=== PATIENT | male | born 1930 | race American Indian/Alaskan Native ===

== ENCOUNTER 2018-06-16 06:58 | Day surgery (SDC) | payer MEDICARE ==
[2018-06-16 07:20] VITALS: BMI 25.0
[2018-06-16 07:56] LABS: BASO # 0.1 K/uL (0.0-0.2); EOS # 0.3 K/uL (0.0-0.7); EOS % 5.3 % (0.0-4.0); HEMOGLOBIN 11.3 g/dL (12.0-18.0); LYMPH # 1.6 K/uL (1.0-4.3); LYMPH % 34.2 % (20.0-40.0); MEAN CELL VOLUME 92.7 fL (80.0-94.0); MEAN CORPUSCULAR HEMOGLOBIN 32.1 pg (27.0-31.0); MEAN CORPUSCULAR HGB CONC 34.6 g/dL (33.0-37.0); MEAN PLATELET VOLUME 7.5 fL (7.2-11.7); MONO # 0.5 K/uL (0.0-0.8); MONO % 10.4 % (0.0-10.0); NEUT # 2.4 K/uL (1.8-7.0); NEUT % 49.1 % (50.0-75.0); NRBC % 0.1 % (0.0-2.0); RBC 3.53 Mil/uL (4.40-5.90); WHITE BLOOD COUNT 4.8 K/uL (4.8-10.8)
[2018-06-16 08:08] LABS: INR 1.1; PROTHROMBIN TIME 11.7 SECONDS (9.7-12.2)
[2018-06-16 08:09] LABS: BLOOD UREA NITROGEN 21 mg/dL (9-20); CALCIUM 8.8 mg/dl (8.6-10.4); GFR NON-AFRICAN AMERICAN > 60
[2018-06-16] MEDS ORDERED: Iohexol 350mg/ml 100 ML ONE (08:42)
[2018-06-16] MEDS ORDERED: Midazolam 2 MG/2 ML VIAL ONE (09:05)
[2018-06-16] MEDS ORDERED: Sodium Chloride 0.9% 500 ML IV SCH (10:00)
[2018-06-18 12:24] VITALS: RESP 15; O2SAT 100
--- NOTE | 2018-06-22 13:05 | CARDCATH ---
PROCEDURE DATE: 06/16/2018 PROCEDURES: 1. Left heart catheterization. 2. Coronary angiogram. CLINICAL INDICATIONS: 1. Chest pain. 2. Abnormal stress test. 3. Atrial fibrillation. PERFORMING PHYSICIAN: Avi Silver MD. DESCRIPTION OF PROCEDURE: After informed consent, the patient was prepped and draped in the usual sterile fashion. A 2% lidocaine was given in the right groin for local anesthesia. Using micropuncture technique, a #6 Polish sheath was introduced into right common femoral artery. A JR4 6-Polish diagnostic catheter inserted into the left ventricle. Contrast injected and left ventricular angiogram was done. LVEDP is measured. Then, the catheters were pulled back across the aortic valve. Gradient across the aortic valve was measured. Then, the same catheter engaged into the right coronary artery. Contrast injected and the right coronary angiogram was done. Then, the catheter exchanged into 6-Polish JL3 diagnostic catheter. Catheter engaged into the left main coronary artery. Contrast injected and left coronary angiogram was done. The patient tolerated the procedure well. Postprocedure, the sheath was pulled manually with excellent hemostasis. FINDINGS: 1. Left main coronary artery is patent. 2. LAD and diagonal branches are patent. 3. Left circumflex and obtuse marginal branches are patent. 4. Right coronary artery is nondominant and patent. The patient has a left dominant system. 5. LV ejection fraction approximately 60%. No wall motion abnormalities noted. EDP is 18. No gradient across the aortic valve. IMPRESSION: 1. Normal coronaries. 2. Normal left ventricular systolic function. Recommend medical management. Avi Silver MD
== END 2018-06-16 13:45 | disposition home or self-care (01) ==
LOC: C.CATHLAB 06:58
PROVIDERS: ATTEND Internal Medicine Cardiovascular Disease
DX: R94.39 Abnormal result of other cardiovascular function study (principal); I48.91 Unspecified atrial fibrillation; I10 Essential (primary) hypertension
CPT/HCPCS: 36415; 80048; 85025; 85610; 85730; 93458; 94770; 99152; 99153; C1760; C1766; C1769; C1887; C1893; J1644; J2250; J3010; J7040; Q9967

== ENCOUNTER 2018-10-24 13:13 | Inpatient (IN) | payer MEDICARE ==
[2018-10-24 13:13] VITALS: BMI 25.0
[2018-10-24 14:45] LABS: BASO # 0.1 K/uL (0.0-0.2); EOS # 0.2 K/uL (0.0-0.7); EOS % 3.9 % (0.0-4.0); HEMOGLOBIN 11.2 g/dL (12.0-18.0); LYMPH # 1.5 K/uL (1.0-4.3); LYMPH % 30.8 % (20.0-40.0); MEAN CELL VOLUME 92.6 fL (80.0-94.0); MEAN CORPUSCULAR HEMOGLOBIN 31.7 pg (27.0-31.0); MEAN CORPUSCULAR HGB CONC 34.2 g/dL (33.0-37.0); MEAN PLATELET VOLUME 7.8 fL (7.2-11.7); MONO # 0.6 K/uL (0.0-0.8); MONO % 12.3 % (0.0-10.0); NEUT # 2.5 K/uL (1.8-7.0); NRBC % 0.1 % (0.0-2.0); RBC 3.54 Mil/uL (4.40-5.90); RED CELL DISTRIBUTION WIDTH 13.5 % (11.5-14.5); WHITE BLOOD COUNT 4.8 K/uL (4.8-10.8)
--- NOTE | 2018-10-24 14:57 | C.PDOC ---
History Of Present Illness 88 year old male with PMHx of glaucoma on beta delroy eye drops presents to the ED sent by his hardware designer Dr. Silver. Patient was at Dr. Silver's office this morning where he was noted to be bradycardic but asymptomatic. Patient was r eferred to the ED for further evaluation and the possibility of an urgent pacemaker placement because patient's pulse is persistently in the 30-40s. Patient denies any physical complaints. Time Seen by Provider: 10/24/18 14:19 Chief Complaint (Nursing): Medical Clearance History Per: Patient History/Exam Limitations: no limitations Onset/Duration Of Symptoms: Hrs Current Symptoms Are (Timing): Still Present Reports Recently: Treated By A Physician Past Medical History Reviewed: Historical Data, Nursing Documentation, Vital Signs Vital Signs: Last Vital Signs Temp 98 F 10/24/18 13:17 Pulse 63 10/24/18 13:17 Resp 18 10/24/18 13:17 BP 196/80 H 10/24/18 13:17 Pulse Ox 97 10/24/18 13:17 - Medical History PMH: HTN Other PMH: Glaucoma Surgical History: Denies: Pacemaker - [facility] ENDOSC POLYPECTOMY OF LG INTEST (06/27/12) Family History: States: No Known Family Hx - Social History Hx Alcohol Use: No (social) Hx Substance Use: No - Immunization History Hx Tetanus Toxoid Vaccination: No Hx Influenza Vaccination: No Hx Pneumococcal Vaccination: No Review Of Systems Except As Marked, All Systems Reviewed And Found Negative. Constitutional: Negative for: Fever, Chills Cardiovascular: Positive for: Other (Bradycardia ). Negative for: Chest Pain Respiratory: Negative for: Shortness of Breath Gastrointestinal: Negative for: Nausea, Vomiting, Abdominal Pain, Diarrhea Physical Exam - Physical Exam Appears: Non-toxic, No Acute Distress Skin: Warm, Dry, No Rash Head: Normacephalic Eye(s): bilateral: Normal Inspection Oral Mucosa: Moist Neck: Supple Chest: Symmetrical Cardiovascular: Rhythm Regular Respiratory: Normal Breath Sounds, No Rales, No Rhonchi, No Wheezing Gastrointestinal/Abdominal: Soft, No Tenderness Extremity: No Pedal Edema Neurological/Psych: Oriented x3, Normal Speech Gait: Steady ED Course And Treatment - Laboratory Results Result Diagrams: 10/24/18 14:40 10/24/18 14:40 O2 Sat by Pulse Oximetry: 97 (RA) Pulse Ox Interpretation: Normal Medical Decision Making Medical Decision Making: Plan - Labs - EKG - CXR Disposition Discussed With Dr.: Avi Silver - Disposition Disposition: HOSPITALIZED Disposition Time: 15:12 Condition: GUARDED Forms: [facility] (Norwegian) - Clinical Impression Clinical Impression: Bradycardia - Scribe Statement The provider has reviewed the documentation as recorded by the Scribe Tiara Weaver All medical record entries made by the Scribe were at my direction and personally dictated by me. I have reviewed the chart and agree that the record accurately reflects my personal performance of the history, physical exam, medical decision making, and the department course for this patient. I have also personally directed, reviewed, and agree with the discharge instructions and disposition. Decision To Admit - Pt Status Changed To: Hospital Disposition Of: Observation - . Bed Request Type: Telemetry Admitting Physician: Eric Bella Patient Diagnosis: Bradycardia
[2018-10-24 15:03] LABS: ALB/GLOB RATIO 1.9 (1.0-2.1); ALBUMIN 4.5 g/dL (3.5-5.0); ALT/SGPT 32 U/L (21-72); AST/SGOT 35 U/L (17-59); BLOOD UREA NITROGEN 19 mg/dL (9-20); CALCIUM 9.4 mg/dl (8.6-10.4); GFR NON-AFRICAN AMERICAN > 60
[2018-10-24 15:17] LABS: B-TYPE NATRIURETIC PEPTIDE 1550 pg/mL (0-900)
--- NOTE | 2018-10-24 16:11 | CP.PCM.HP ---
<Rhonda Hernandez P - Last Filed: 10/24/18 19:18> History of Present Illness - History of Present Illness History of Present Illness: H&P for Dr. Azucena Bella. 88 year old male with PMHx of Atrial fibrillation, glaucoma, BPH, chronic leg swelling, and chronic leg pain was sent to the ED by his microfilm machine operator, Dr. Silver when he was found to be bradycardic in the 30's at a routine office visit. Patient has no complaints at this time. Denies chest pain, shortness of breath, lethargy, syncope, near syncope, lightheadedness, dizziness, palpitations, change in vision, abdominal pain, diarrhea, constipation, melena, dysuria, frequency. Patient notes that he was previously on Eliquis for Afib (06/2018), however was taken off of it a few weeks later after experiencing bloody diarrhea. 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 PMD: May Cardio: Dr. Silver Proxy: Daughter: Sintia Calderon, Patient has a living will in progress. 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 Review of Systems: -Gen: No fever, No chills, No headache, No lethargy, No weakness. -HEENT: No dizziness, No change in vision, No change in hearing, No sore throat, No dysphagia, No nasal congestion, No mucous. -Cardio: No chest pain, No palpitations, +chronic lower extremity edema, No orthopnea. -Resp: No cough, No dyspnea, No hemoptysis, No wheezing, No pain on inspira tion. -GI: No abdominal pain, No nausea/vomiting, No diarrhea/constipation, No hematochezia, No hematemesis. -: No dysuria, No urinary freq, No incontinence, No hematuria, No change in urinary stream. -MSK: No back pain, No muscle weakness, No radiating pain. +leg pain -Skin: No itching, No rash, No lesions. -Neuro: No confusion, No numbness, No tingling, No focal weakness, No radicular pain, No syncope. -Psych: No anxiety, No depression, No H/I, No S/I, No hallucinations. Present on Admission - Present on Admission Any Indicators Present on Admission: No Past Patient History - Past Social History Smoking Status: Never Smoked - CARDIAC Hx Hypertension: Yes Hx Pacemaker: No - HEENT Other/Comment: eye problem - HEMATOLOGICAL/ONCOLOGICAL Hx Blood Transfusions: No Hx Blood Transfusion Reaction: No - MUSCULOSKELETAL/RHEUMATOLOGICAL Hx Musculoskeletal Disorders: No - PSYCHIATRIC Hx Substance Use: No - SURGICAL HISTORY Hx Surgeries: No - ANESTHESIA Hx Anesthesia Reactions: No Hx Malignant Hyperthermia: No Meds Allergies/Adverse Reactions: Allergies Allergy/AdvReac Type Severity Reaction Status Date / Time No Known Allergies Allergy Verified 10/24/18 13:18 Physical Exam - Constitutional Appears: Non-toxic, No Acute Distress - Head Exam Head Exam: ATRAUMATIC, NORMOCEPHALIC - Eye Exam Eye Exam: EOMI, PERRL Additional comments: arcus senilis - ENT Exam ENT Exam: Mucous Membranes Moist - Neck Exam Neck exam: Positive for: Full Rom, Normal Inspection. Negative for: Lymphadenopathy - Respiratory Exam Respiratory Exam: Clear to Auscultation Bilateral, NORMAL BREATHING PATTERN. absent: Accessory Muscle Use, Rales, Rhonchi, Wheezes, Respiratory Distress - Cardiovascular Exam Cardiovascular Exam: Bradycardia, +S1, +S2 - GI/Abdominal Exam GI & Abdominal Exam: Normal Bowel Sounds, Soft. absent: Distended, Firm, Guarding, Rigid, Tenderness - Extremities Exam Extremities exam: Positive for: full ROM, normal capillary refill, pedal pulses present. Negative for: calf tenderness, joint swelling, tenderness Additional comments: chronic venous stasis changes bilaterally, trace pitting edema to RLE. - Neurological Exam Neurological exam: Alert, CN II-XII Intact, Oriented x3 - Psychiatric Exam Psychiatric exam: Normal Affect, Normal Mood - Skin Skin Exam: Dry, Intact, Warm Additional comments: lentigo senilis to back Results - Vital Signs Recent Vital Signs: Last Vital Signs Temp 98.0 F 10/24/18 15:52 Pulse 51 L 10/24/18 15:52 Resp 20 10/24/18 15:52 BP 178/61 H 10/24/18 15:52 Pulse Ox 98 10/24/18 15:52 - Labs Result Diagrams: 10/24/18 14:40 10/24/18 14:40 Labs: Laboratory Results - last 24 hr 10/24/18 10/24/18 10/24/18 14:40 14:40 14:40 WBC 4.8 RBC 3.54 L Hgb 11.2 L Hct 32.8 L MCV 92.6 MCH 31.7 H MCHC 34.2 RDW 13.5 Plt Count 164 MPV 7.8 Neut % (Auto) 52.0 Lymph % (Auto) 30.8 [place] % (Auto) 12.3 H Eos % (Auto) 3.9 Baso % (Auto) 1.0 Neut # (Auto) 2.5 Lymph # (Auto) 1.5 [place] # (Auto) 0.6 Eos # (Auto) 0.2 Baso # (Auto) 0.1 Sodium 135 Potassium 3.9 Chloride 106 Carbon Dioxide 27 Anion Gap 6 L BUN 19 Creatinine 1.0 Est GFR ( Amer) > 60 Est GFR (Non-Af Amer) > 60 Random Glucose 98 Calcium 9.4 Total Bilirubin 1.3 AST 35 ALT 32 Alkaline Phosphatase 87 Troponin I < 0.0120 NT-Pro-B Natriuret Pep 1550 H Total Protein 6.9 Albumin 4.5 Globulin 2.4 Albumin/Globulin Ratio 1.9 Blood Type A POSITIVE Antibody Screen Negative Assessment & Plan - Assessment and Plan (Free Text) Plan: 88 year old male with PMHx of Atrial fibrillation, glaucoma, BPH, chronic leg swelling, and chronic leg pain was sent to the ED by his microfilm machine operator, Dr. Silver when he was found to be bradycardic in the 30's at a routine office visit. Asymptomatic Bradycardia status, acute Consult cardiology, Dr. Silver Consult EP, Dr. Byrd EKG: afib with slow ventricular response 42bpm Elevated Blood Pressure Status, acute SBP on admission 170s Hydralazine 10mg PO Q6H PRN SBP>160 Elevated ProBNP status, acute Pro BNP on admission 1550 Patient has no chest pain, cough, shortness of breath, or wheezing No evidence of congestion on respiratory exam f/u CXR Chronic anemia status chronic Hgb A1c on admission 11.2 Likely secondary to chronic disease Monitor Continue ferrous sulfate 325mg PO daily Atrial fibrillation Status chronic Place on Telemetry Lovenox 70mg SC Q12H Previous trial of Eliquis resulted in bloody diarrhea BPH Status, chronic Flomax 0.4mg SC daily Finesteride 5mg PO daily Bilateral glaucoma Status, chronic Home med Combigan non formulary-> Brimonidine 0.2% OU daily Lumigan 0.01% OU daily Bilateral lower extremity edema Status, chronic HCTZ 12.5mg PO daily PPx Therapeutic lovenox GI not indicated HHD/Low carb Case discussed with Dr. Azucena Hernandez, PGY1 <Eric Bella - Last Filed: 10/25/18 17:08> Results - Vital Signs Recent Vital Signs: Last Vital Signs Temp 98.5 F 10/25/18 08:20 Pulse 48 L 10/25/18 11:32 Resp 20 10/25/18 08:20 BP 123/72 10/25/18 11:32 Pulse Ox 97 10/25/18 12:00 - Labs Result Diagrams: 10/25/18 07:02 10/25/18 07:02 Labs: Laboratory Results - last 24 hr 10/25/18 10/25/18 10/25/18 07:02 07:02 07:02 WBC 3.6 L RBC 3.91 L Hgb 12.6 Hct 36.3 MCV 93.0 MCH 32.1 H MCHC 34.5 RDW 14.0 Plt Count 179 MPV 8.2 Neut % (Auto) 49.5 L Lymph % (Auto) 36.8 [place] % (Auto) 8.9 Eos % (Auto) 3.5 Baso % (Auto) 1.3 Neut # (Auto) 1.8 Lymph # (Auto) 1.3 [place] # (Auto) 0.3 Eos # (Auto) 0.1 Baso # (Auto) 0.0 PT 12.4 H INR 1.1 APTT 40 H Sodium 136 Potassium 4.0 Chloride 102 Carbon Dioxide 27 Anion Gap 11 BUN 18 Creatinine 1.0 Est GFR ( Amer) > 60 Est GFR (Non-Af Amer) > 60 Random Glucose 107 Calcium 9.6 Total Bilirubin 1.5 H AST 32 ALT 31 Alkaline Phosphatase 93 Total Protein 7.2 Albumin 4.1 Globulin 3.1 Albumin/Globulin Ratio 1.3 Thyroxine (T4) 7.61 TSH 3rd Generation 2.50 Attending/Attestation - Attestation I have personally seen and examined this patient.: Yes I have fully participated in the care of the patient.: Yes I have reviewed all pertinent clinical information: Yes Notes (Text): 10/25/18 17:07 This is a late entry. History, Physical, Assessment and Plan, and all Orders were thoroughly gone over with resident Dr. Hernandez at the time of admission. Spoke with Dr. Silver on 10/24/18 and plan is for Pacemaker. Eric Bella D.O.
--- NOTE | 2018-10-24 17:15 | RAD ---
HISTORY: chest pain COMPARISON: None available TECHNIQUE: Chest, one view. FINDINGS: Examination limited by habitus. LUNGS: No focal consolidation. Please note that chest x-ray has limited sensitivity for the detection of pulmonary masses. PLEURA: No significant pleural effusion identified. No definite pneumothorax . CARDIOVASCULAR: Cardiomegaly. Atherosclerotic calcifications of the aortic knob. OSSEOUS STRUCTURES: Osseous demineralization. Degenerative changes. VISUALIZED UPPER ABDOMEN: Unremarkable. OTHER FINDINGS: None. IMPRESSION: Cardiomegaly. No focal consolidation.
[2018-10-24] MEDS: Enoxaparin 80 mg Syringe SC SCH (18:00)
[2018-10-24] MEDS ORDERED: Latanoprost 2.5 ml Opht Soln OU SCH (22:00)
[2018-10-24] MEDS ORDERED: BIMATOPROST OU SCH (22:00)
[2018-10-25] MEDS: Enoxaparin 80 mg Syringe SC SCH ×2 (05:47→17:17)
[2018-10-25 07:17] LABS: BASO % 1.3 % (0.0-2.0); EOS # 0.1 K/uL (0.0-0.7); EOS % 3.5 % (0.0-4.0); HEMOGLOBIN 12.6 g/dL (12.0-18.0); LYMPH # 1.3 K/uL (1.0-4.3); LYMPH % 36.8 % (20.0-40.0); MEAN CORPUSCULAR HEMOGLOBIN 32.1 pg (27.0-31.0); MEAN CORPUSCULAR HGB CONC 34.5 g/dL (33.0-37.0); MEAN PLATELET VOLUME 8.2 fL (7.2-11.7); MONO # 0.3 K/uL (0.0-0.8); MONO % 8.9 % (0.0-10.0); NEUT # 1.8 K/uL (1.8-7.0); NEUT % 49.5 % (50.0-75.0); RBC 3.91 Mil/uL (4.40-5.90); WHITE BLOOD COUNT 3.6 K/uL (4.8-10.8)
[2018-10-25 07:25] LABS: ALB/GLOB RATIO 1.3 (1.0-2.1); ALBUMIN 4.1 g/dL (3.5-5.0); ALT/SGPT 31 U/L (21-72); AST/SGOT 32 U/L (17-59); BLOOD UREA NITROGEN 18 mg/dL (9-20); CALCIUM 9.6 mg/dl (8.6-10.4); GFR NON-AFRICAN AMERICAN > 60
[2018-10-25 07:37] LABS: INR 1.1; PROTHROMBIN TIME 12.4 SECONDS (9.7-12.2)
[2018-10-25] MEDS ORDERED: Brimonidine 0.2% Opth Sol (5ml) OU SCH (10:00)
--- NOTE | 2018-10-25 16:50 | CP.PCM.PN ---
Subjective - Date & Time of Evaluation Date of Evaluation: 10/25/18 Time of Evaluation: 12:00 - Subjective Subjective: Hospitalist Progress Note Patient was seen and examined at 12:00 PM 10/25/18 Bed 662B 88 year Male (PMHx: Atrial fibrillation, Glaucoma, BPH, Chronic Leg Swelling/Chronic Leg Pain) was sent to the ED by his bag bleacher, Dr. Silver when he was found to be bradycardic in the 30's at a routine office visit on 10/24/18. 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 Asymptomatic Bradycardia Status: Acute Consult cardiology, Dr. Silver Consult EP, Dr. Garcia and we are awaiting his evaluation for placement of Pacemaker EKG: Atrial Fibrillation with slow ventricular response 2). Elevated Blood Pressure Status: Acute SBP on admission 170s Hydralazine 10mg PO Q6H PRN SBP>160 Patient is on HCTZ at home but this is for his Chronic LE Edema. HCTZ 12.5 mg PO 1x/day has been continued Enalapril 10 mg PO 1x/day has been added NO beta delroy and NO CCB due to the bradycardia 3). Elevated ProBNP Status: Acute Pro BNP on admission 1550 Patient has no chest pain, cough, shortness of breath, or wheezing No evidence of congestion on respiratory exam Chest X Ray 10/24/18 does not indicate any congestion and no consolidation but does show enlarged heart 4). Chronic anemia Status: Chronic Hgb on admission 11.2 Likely secondary to chronic disease Monitor HgB/Hct 5). Hx Atrial fibrillation Status: Chronic Place on Telemetry Lovenox 70mg SC Q12H Previous trial of Eliquis resulted in bloody diarrhea Medicine Team will follow up with Cardiology Dr. Silver for best course of action for anticoagulation after placement of Pacemaker 6). Hx BPH Status: Chronic Flomax 0.4mg SC daily Finesteride 5mg PO daily 7). Hx Bilateral glaucoma Status: Chronic Home med Combigan non formulary-> Brimonidine 0.2% OU daily Lumigan 0.01% OU daily Daughter Eron to bring in home glaucoma medications on 10/25/18 8). Hx Bilateral Lower Extremity Edema/Pain Status: Chronic HCTZ 12.5mg PO 1x/day Gabapentin 300 mg PO 1x/day 9). Prophylaxis Status: Acute Therapeutic lovenox GI not indicated HHD/Low carb diet Disposition: Dr. Silver to coordinate with Director Of Teacher Education Dr. Garcia for Pacemaker. Spoke with Daughter Eron via phone as per patient request: explained plan. Daughter Eron to bring in patient's home Glaucoma medications on and she understands to give them to the nursing station so that they can be properly logged and administered. Objective - Vital Signs/Intake and Output Vital Signs (last 24 hours): Temp Pulse Resp BP Pulse Ox 98.5 F 48 L 20 123/72 97 10/25/18 08:20 10/25/18 11:32 10/25/18 08:20 10/25/18 11:32 10/25/18 12:00 - Medications Medications: Current Medications Aspirin (Aspirin Chewable) 81 mg PO DAILY [facility] Last Admin: 10/25/18 09:15 Dose: 81 mg Brimonidine Tartrate (Alphagan 0.2% Opht) 0.05 ml OU DAILY [facility] Last Admin: 10/25/18 09:15 Dose: 1 drop Enoxaparin Sodium (Lovenox) 70 mg SC Q12H [facility] Last Admin: 10/25/18 05:47 Dose: 70 mg Ferrous Sulfate (Feosol) 325 mg PO DAILY [facility] Last Admin: 10/25/18 09:15 Dose: 325 mg Gabapentin (Neurontin) 300 mg PO DAILY [facility] Last Admin: 10/25/18 09:15 Dose: 300 mg Hydralazine HCl (Apresoline) 10 mg PO Q6H PRN PRN Reason: Systolic Blood Pressure Hydrochlorothiazide (Microzide) 12.5 mg PO DAILY [facility] Last Admin: 10/25/18 09:15 Dose: 12.5 mg Latanoprost (Xalatan Opht) 1 ml OU HS [facility] Last Admin: 10/24/18 21:23 Dose: 1 ml Lisinopril (Zestril) 10 mg PO DAILY [facility] Last Admin: 10/25/18 11:17 Dose: Not Given Tamsulosin HCl (Flomax) 0.4 mg PO DAILY [facility] Last Admin: 10/25/18 09:15 Dose: 0.4 mg Timolol Maleate (Timoptic 0.5% Oph Soln) 0 drop OU DAILY [facility] Last Admin: 10/25/18 11:22 Dose: 1 drop - Labs Labs: 10/25/18 07:02 10/25/18 07:02 PT 12.4 SECONDS (9.7-12.2) H 10/25/18 07:02 INR 1.1 10/25/18 07:02 APTT 40 SECONDS (21-34) H 10/25/18 07:02
--- NOTE | 2018-10-25 18:59 | CP.PCM.CON ---
History of Present Illness - History of Present Illness History of Present Illness: CC; Bradycardia and Heart Blcok 88 year old male with PMHx of Atrial fibrillation, glaucoma, BPH, chronic leg swelling, and chronic leg pain was sent to the ED by me when he was found to be bradycardic in the 30's at a routine office visit. Patient has no complaints at this time. Denies chest pain, shortness of breath, lethargy, syncope, near syncope, lightheadedness, dizziness, palpitations, change in vision, abdominal pain, diarrhea, constipation, melena, dysuria, frequency. Patient notes that he was previously on Eliquis for Afib (06/2018), however was taken off of it a few weeks later after experiencing bloody diarrhea. 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 Proxy: Daughter: Sintia Calderon, Patient has a living will in progress. He states his airport driver has not finalized it yet. Review of Systems: -Gen: No fever, No chills, No headache, No lethargy, No weakness. -HEENT: No dizziness, No change in vision, No change in hearing, No sore throat, No dysphagia, No nasal congestion, No mucous. -Cardio: No chest pain, No palpitations, +chronic lower extremity edema, No orthopnea. -Resp: No cough, No dyspnea, No hemoptysis, No wheezing, No pain on inspiration. -GI: No abdominal pain, No nausea/vomiting, No diarrhea/constipation, No hematochezia, No hematemesis. -: No dysuria, No urinary freq, No incontinence, No hematuria, No change in urinary stream. -MSK: No back pain, No muscle weakness, No radiating pain. +leg pain -Skin: No itching, No rash, No lesions. -Neuro: No confusion, No numbness, No tingling, No focal weakness, No radicular pain, No syncope. -Psych: No anxiety, No depression, No H/I, No S/I, No hallucinations. Present on Admission - Present on Admission Any Indicators Present on Admission: No Meds Allergies/Adverse Reactions: Allergies Allergy/AdvReac Type Severity Reaction Status Date / Time No Known Allergies Allergy Verified 10/24/18 13:18 Physical Exam - Constitutional Appears: Non-toxic, No Acute Distress - Head Exam Head Exam: ATRAUMATIC, NORMOCEPHALIC - Eye Exam Eye Exam: EOMI, PERRL Additional comments: arcus senilis - ENT Exam ENT Exam: Mucous Membranes Moist - Neck Exam Neck exam: Positive for: Full Rom, Normal Inspection. Negative for: Lymphadenopathy - Respiratory Exam Respiratory Exam: Clear to Auscultation Bilateral, NORMAL BREATHING PATTERN. absent: Accessory Muscle Use, Rales, Rhonchi, Wheezes, Respiratory Distress - Cardiovascular Exam Cardiovascular Exam: Bradycardia, +S1, +S2 - GI/Abdominal Exam GI & Abdominal Exam: Normal Bowel Sounds, Soft. absent: Distended, Firm, Guarding, Rigid, Tenderness - Extremities Exam Extremities exam: Positive for: full ROM, normal capillary refill, pedal pulses present. Negative for: calf tenderness, joint swelling, tenderness Additional comments: chronic venous stasis changes bilaterally, trace pitting edema to RLE. - Neurological Exam Neurological exam: Alert, CN II-XII Intact, Oriented x3 - Psychiatric Exam Psychiatric exam: Normal Affect, Normal Mood - Skin Skin Exam: Dry, Intact, Warm Additional comments: lentigo senilis to back Results - Vital Signs Recent Vital Signs: Last Vital Signs Temp 98.0 F 10/24/18 15:52 Pulse 51 L 10/24/18 15:52 Resp 20 10/24/18 15:52 BP 178/61 H 10/24/18 15:52 Pulse Ox 98 10/24/18 15:52 - Labs Result Diagrams: 10/24/18 14:40 10/24/18 14:40 Labs: Laboratory Results - last 24 hr 10/24/18 10/24/18 10/24/18 14:40 14:40 14:40 WBC 4.8 RBC 3.54 L Hgb 11.2 L Hct 32.8 L MCV 92.6 MCH 31.7 H MCHC 34.2 RDW 13.5 Plt Count 164 MPV 7.8 Neut % (Auto) 52.0 Lymph % (Auto) 30.8 Kidder % (Auto) 12.3 H Eos % (Auto) 3.9 Baso % (Auto) 1.0 Neut # (Auto) 2.5 Lymph # (Auto) 1.5 Kidder # (Auto) 0.6 Eos # (Auto) 0.2 Baso # (Auto) 0.1 Sodium 135 Potassium 3.9 Chloride 106 Carbon Dioxide 27 Anion Gap 6 L BUN 19 Creatinine 1.0 Est GFR ( Amer) > 60 Est GFR (Non-Af Amer) > 60 Random Glucose 98 Calcium 9.4 Total Bilirubin 1.3 AST 35 ALT 32 Alkaline Phosphatase 87 Troponin I < 0.0120 NT-Pro-B Natriuret Pep 1550 H Total Protein 6.9 Albumin 4.5 Globulin 2.4 Albumin/Globulin Ratio 1.9 Blood Type A POSITIVE Antibody Screen Negative Assessment & Plan - Assessment and Plan (Free Text) Plan: 88 year old male with PMHx of Atrial fibrillation, glaucoma, BPH, chronic leg swelling, and chronic leg pain was sent to the ED by his field administrator, Dr. Silver when he was found to be bradycardic in the 30's at a routine office visit. Bradycardia and 2:1 Heart Block status, acute Likely PPM on Saturday Consult EP, Dr. Byrd Elevated Blood Pressure Status, acute SBP on admission 170s Hydralazine 10mg PO Q6H PRN SBP>160 Elevated ProBNP status, acute Pro BNP on admission 1550 Patient has no chest pain, cough, shortness of breath, or wheezing No evidence of congestion on respiratory exam f/u CXR Chronic anemia status chronic Hgb A1c on admission 11.2 Likely secondary to chronic disease Monitor Continue ferrous sulfate 325mg PO daily Atrial fibrillation Status chronic Place on Telemetry Lovenox 70mg SC Q12H Previous trial of Eliquis resulted in bloody diarrhea BPH Status, chronic Flomax 0.4mg SC daily Finesteride 5mg PO daily Bilateral glaucoma Status, chronic Home med Combigan non formulary-> Brimonidine 0.2% OU daily Lumigan 0.01% OU daily Bilateral lower extremity edema Status, chronic HCTZ 12.5mg PO daily PPx Therapeutic lovenox GI not indicated HHD/Low carb Past Patient History - Past Social History Smoking Status: Never Smoked - CARDIAC Hx Hypertension: Yes Hx Pacemaker: No - HEENT Other/Comment: eye problem - HEMATOLOGICAL/ONCOLOGICAL Hx Blood Transfusions: No Hx Blood Transfusion Reaction: No - MUSCULOSKELETAL/RHEUMATOLOGICAL Hx Musculoskeletal Disorders: No - PSYCHIATRIC Hx Substance Use: No - SURGICAL HISTORY Hx Surgeries: No - ANESTHESIA Hx Anesthesia Reactions: No Hx Malignant Hyperthermia: No Meds Allergies/Adverse Reactions: Allergies Allergy/AdvReac Type Severity Reaction Status Date / Time No Known Allergies Allergy Verified 10/24/18 13:18 - Medications Medications: Current Medications Aspirin (Aspirin Chewable) 81 mg PO DAILY [facility] Last Admin: 10/25/18 09:15 Dose: 81 mg Brimonidine Tartrate (Alphagan 0.2% Opht) 0.05 ml OU DAILY [facility] Last Admin: 10/25/18 09:15 Dose: 1 drop Enoxaparin Sodium (Lovenox) 70 mg SC Q12H [facility] Last Admin: 10/25/18 17:17 Dose: 70 mg Ferrous Sulfate (Feosol) 325 mg PO DAILY [facility] Last Admin: 10/25/18 09:15 Dose: 325 mg Gabapentin (Neurontin) 300 mg PO DAILY [facility] Last Admin: 10/25/18 09:15 Dose: 300 mg Hydralazine HCl (Apresoline) 10 mg PO Q6H PRN PRN Reason: Systolic Blood Pressure Hydrochlorothiazide (Microzide) 12.5 mg PO DAILY [facility] Last Admin: 10/25/18 09:15 Dose: 12.5 mg Latanoprost (Xalatan Opht) 1 ml OU HS [facility] Last Admin: 10/24/18 21:23 Dose: 1 ml Lisinopril (Zestril) 10 mg PO DAILY [facility] Last Admin: 10/25/18 11:17 Dose: Not Given Tamsulosin HCl (Flomax) 0.4 mg PO DAILY [facility] Last Admin: 10/25/18 09:15 Dose: 0.4 mg Timolol Maleate (Timoptic 0.5% Ophth Soln) 0 drop OU DAILY [facility] Last Admin: 10/25/18 11:22 Dose: 1 drop Results - Vital Signs Recent Vital Signs: Last Vital Signs Temp 98.5 F 10/25/18 08:20 Pulse 48 L 10/25/18 11:32 Resp 20 10/25/18 08:20 BP 123/72 10/25/18 11:32 Pulse Ox 97 10/25/18 12:00 - Labs Result Diagrams: 10/25/18 07:02 10/25/18 07:02 Labs: Laboratory Results - last 24 hr 10/25/18 10/25/18 10/25/18 07:02 07:02 07:02 WBC 3.6 L RBC 3.91 L Hgb 12.6 Hct 36.3 MCV 93.0 MCH 32.1 H MCHC 34.5 RDW 14.0 Plt Count 179 MPV 8.2 Neut % (Auto) 49.5 L Lymph % (Auto) 36.8 Kidder % (Auto) 8.9 Eos % (Auto) 3.5 Baso % (Auto) 1.3 Neut # (Auto) 1.8 Lymph # (Auto) 1.3 Kidder # (Auto) 0.3 Eos # (Auto) 0.1 Baso # (Auto) 0.0 PT 12.4 H INR 1.1 APTT 40 H Sodium 136 Potassium 4.0 Chloride 102 Carbon Dioxide 27 Anion Gap 11 BUN 18 Creatinine 1.0 Est GFR ( Amer) > 60 Est GFR (Non-Af Amer) > 60 Random Glucose 107 Calcium 9.6 Total Bilirubin 1.5 H AST 32 ALT 31 Alkaline Phosphatase 93 Total Protein 7.2 Albumin 4.1 Globulin 3.1 Albumin/Globulin Ratio 1.3 Thyroxine (T4) 7.61 TSH 3rd Generation 2.50
[2018-10-25] MEDS: Patient's Own Drops OU SCH (21:45)
[2018-10-25] MEDS: Brimonidine 0.2% Opth Sol (5ml) OU SCH (21:45)
[2018-10-26] MEDS: Enoxaparin 80 mg Syringe SC SCH ×2 (05:46→17:29)
[2018-10-26 07:37] LABS: BASO % 0.8 % (0.0-2.0); EOS # 0.1 K/uL (0.0-0.7); EOS % 3.7 % (0.0-4.0); HEMOGLOBIN 11.3 g/dL (12.0-18.0); LYMPH # 1.3 K/uL (1.0-4.3); LYMPH % 33.4 % (20.0-40.0); MEAN CELL VOLUME 92.3 fL (80.0-94.0); MEAN CORPUSCULAR HEMOGLOBIN 32.4 pg (27.0-31.0); MEAN CORPUSCULAR HGB CONC 35.1 g/dL (33.0-37.0); MEAN PLATELET VOLUME 8.3 fL (7.2-11.7); MONO # 0.5 K/uL (0.0-0.8); MONO % 11.3 % (0.0-10.0); NEUT % 50.8 % (50.0-75.0); RBC 3.49 Mil/uL (4.40-5.90); RED CELL DISTRIBUTION WIDTH 13.3 % (11.5-14.5)
[2018-10-26 07:48] LABS: ALB/GLOB RATIO 1.2 (1.0-2.1); ALBUMIN 3.4 g/dL (3.5-5.0); ALT/SGPT 25 U/L (21-72); AST/SGOT 23 U/L (17-59); BLOOD UREA NITROGEN 21 mg/dL (9-20); CALCIUM 8.8 mg/dl (8.6-10.4); GFR NON-AFRICAN AMERICAN > 60
[2018-10-26] MEDS: Brimonidine 0.2% Opth Sol (5ml) OU SCH ×2 (09:00→19:51)
--- NOTE | 2018-10-26 10:34 | CP.PCM.PN ---
Subjective - Date & Time of Evaluation Date of Evaluation: 10/26/18 Time of Evaluation: 10:20 - Subjective Subjective: Hospitalist Progress Note Patient was seen and examined at 10:20 AM 10/26/18 Bed 662B 88 year Male (PMHx: Atrial fibrillation, Glaucoma, BPH, Chronic Leg Swelling/Chronic Leg Pain) was sent to the ED by his condenser tester, Dr. Silver when he was found to be bradycardic in the 30's at a routine office visit on 10/24/18. Currently upon FULL ROS: NO lightheadedness/dizziness: seen walking the medical floor as part of his morning exercise without any complaints NO chest pain NO palpitations NO SOB/Cough NO n/v/d/c NO abdominal pain NO new changes in vision NO new changes in hearing NO headache NO burning/pain with urination NO lightheadedness/dizziness NO paresthesias Exam: General: NAD, AAOx3, Joked "I am going to get fat from all of the food I am eating here" HEETN: NCA, EOMI, PERRLA, NO pharyngeal erythema/exudate, NO lymphadenopathy, NO thyromegaly Cardio: Irregularly irregular Resp: CTA B/L, NO R/R/W GI: BSx4, Soft, NT, ND, NO HSM, NO guarding/rebound tenderness Ext: NO edema noted, Capillary Refill is 2 seconds, Pulses are strong and equal Neuro: CN II through XII are grossly intact Assessment and Plan: 1). Asymptomatic Bradycardia Status: Acute Consult cardiology, Dr. Silver Consult EP, Dr. Garcia and we are awaiting his evaluation for placement of Pacemaker EKG: Atrial Fibrillation with slow ventricular response 2). Elevated Blood Pressure Status: Acute SBP on admission 170s Hydralazine 10mg PO Q6H PRN SBP>160 Patient is on HCTZ at home but this is for his Chronic LE Edema. HCTZ 12.5 mg PO 1x/day has been continued Enalapril 10 mg PO 1x/day has been added NO beta delroy and NO CCB due to the bradycardia 3). Elevated ProBNP Status: Acute Pro BNP on admission 1550 Patient has no chest pain, cough, shortness of breath, or wheezing No evidence of congestion on respiratory exam Chest X Ray 10/24/18 does not indicate any congestion and no consolidation but does show enlarged heart 4). Chronic anemia Status: Chronic Hgb on admission 11.2 Likely secondary to chronic disease Monitor HgB/Hct 5). Hx Atrial fibrillation Status: Chronic Place on Telemetry Lovenox 70mg SC Q12H Previous trial of Eliquis resulted in bloody diarrhea Medicine Team will follow up with Cardiology Dr. Silver for best course of action for anticoagulation after placement of Pacemaker 6). Hx BPH Status: Chronic Flomax 0.4mg SC daily Finesteride 5mg PO daily 7). Hx Bilateral glaucoma Status: Chronic Home med Combigan non formulary-> Brimonidine 0.2% OU daily and Timolol OU Lumigan 0.01% OU daily (brought in from home by Daughter Eron on 10/25/18) Daughter Carolina to bring in home glaucoma medications on 10/25/18 8). Hx Bilateral Lower Extremity Edema/Pain Status: Chronic HCTZ 12.5mg PO 1x/day Gabapentin 300 mg PO 1x/day 9). Prophylaxis Status: Acute Therapeutic lovenox GI not indicated HHD/Low carb diet Disposition: Dr. Silver to coordinate with Weld Inspector Dr. Garcia for Pacemaker: still awaiting evaluation by Dr. Garcia Discuss with Dr. Silver after Pacemaker placement, best option for anticoagulation for Hx Atrial Fibrillation in light of prior history of blood diarrhea while on Eliquis. Eric Bella D.O. Objective - Vital Signs/Intake and Output Vital Signs (last 24 hours): Temp Pulse Resp BP Pulse Ox 98.0 F 50 L 20 159/68 H 97 10/26/18 08:29 10/26/18 08:29 10/26/18 08:29 10/26/18 08:29 10/26/18 08:29 - Medications Medications: Current Medications Aspirin (Aspirin Chewable) 81 mg PO DAILY [facility] Last Admin: 10/26/18 09:05 Dose: 81 mg Brimonidine Tartrate (Alphagan 0.2% Opht) 1 ml OU Q12H [facility] Last Admin: 10/26/18 09:00 Dose: 1 drop Enoxaparin Sodium (Lovenox) 70 mg SC Q12H [facility] Last Admin: 10/26/18 05:46 Dose: 70 mg Ferrous Sulfate (Feosol) 325 mg PO DAILY [facility] Last Admin: 10/26/18 09:06 Dose: 325 mg Gabapentin (Neurontin) 300 mg PO DAILY [facility] Last Admin: 10/26/18 09:06 Dose: 300 mg Home Med (Patient's Own Drops) 1 drop OU HS [facility] Last Admin: 10/25/18 21:45 Dose: 1 drop Hydralazine HCl (Apresoline) 10 mg PO Q6H PRN PRN Reason: Systolic Blood Pressure Last Admin: 10/26/18 09:06 Dose: 10 mg Hydrochlorothiazide (Microzide) 12.5 mg PO DAILY [facility] Last Admin: 10/26/18 09:05 Dose: 12.5 mg Lisinopril (Zestril) 10 mg PO DAILY [facility] Last Admin: 10/26/18 09:05 Dose: 10 mg Tamsulosin HCl (Flomax) 0.4 mg PO DAILY [facility] Last Admin: 10/26/18 09:05 Dose: 0.4 mg Timolol Maleate (Timoptic 0.5% Oph Soln) 1 drop OU BID [facility] Last Admin: 10/26/18 09:06 Dose: 1 drop - Labs Labs: 10/26/18 07:18 10/26/18 07:18 PT 12.4 SECONDS (9.7-12.2) H 10/25/18 07:02 INR 1.1 10/25/18 07:02 APTT 40 SECONDS (21-34) H 10/25/18 07:02
--- NOTE | 2018-10-26 11:20 | CP.PCM.CON ---
History of Present Illness - History of Present Illness History of Present Illness: I have been asked by Dr. Silver to provide EP consultation for bradycardia. This is a pleasant 88 yo man with a CV history of HTN and PAF. He is admitted with symptomatic bradycardia. He was initated on anticoagulation for atrial fib rillation in 2018, however, it was discontinued after an episode of bloody diarrhea. He has been tired lately and had some dizziness. He went to see his regular clerk checker who documented a HR in the 30's. 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 He has experienced episodes of 2:1 heart block and marked bradycardia. His ejection fraction is preserved. TSH was unremarkable. He reports that he is able to walk regularly in the park, but sometimes is mildly dizzy. Recently, while standing at the check out line in the store he experienced transient dizziness. PMHx: Glaucoma, BPH, HTN, chronic leg pain, GIB, PAF Social Hx: No tobacco or alcohol use, he lives with his and daughter Daughter Joanne [phone] Family Hx: No premature CAD or sudden Cath 06/22/18 No significant CAD Stress 05/23/18 Normal EF HR 59 Reversible inferior defect ECG 10/24/18: SR with sinus exit block and incremental MN prolongation suggestive of wenckebach conduction. IVCD. Review of Systems - Constitutional Constitutional: absent: Fatigue, Fever - EENT Eyes: absent: Blind Spots, Blurred Vision Ears: Decreased Hearing Nose/Mouth/Throat: absent: Nasal Congestion - Cardiovascular Cardiovascular: Edema, Irregular Heart Rhythm. absent: Chest Pain - Respiratory Respiratory: absent: Cough, Dyspnea, Dyspnea on Exertion - Gastrointestinal Gastrointestinal: absent: Abdominal Pain - Musculoskeletal Musculoskeletal: Abnormal Gait, Arthralgias - Neurological Additional comments: leg pains - Hematologic/Lymphatic Hematologic: Easy Bruising Past Patient History - Past Social History Smoking Status: Never Smoked - CARDIAC Hx Hypertension: Yes Hx Pacemaker: No - HEENT Other/Comment: eye problem - HEMATOLOGICAL/ONCOLOGICAL Hx Blood Transfusions: No Hx Blood Transfusion Reaction: No - MUSCULOSKELETAL/RHEUMATOLOGICAL Hx Musculoskeletal Disorders: No - PSYCHIATRIC Hx Substance Use: No - SURGICAL HISTORY Hx Surgeries: No - ANESTHESIA Hx Anesthesia Reactions: No Hx Malignant Hyperthermia: No Meds Allergies/Adverse Reactions: Allergies Allergy/AdvReac Type Severity Reaction Status Date / Time No Known Allergies Allergy Verified 10/24/18 13:18 - Medications Medications: Current Medications Aspirin (Aspirin Chewable) 81 mg PO DAILY [facility] Last Admin: 10/26/18 09:05 Dose: 81 mg Brimonidine Tartrate (Alphagan 0.2% Opht) 1 ml OU Q12H [facility] Last Admin: 10/26/18 09:00 Dose: 1 drop Enoxaparin Sodium (Lovenox) 70 mg SC Q12H [facility] Last Admin: 10/26/18 05:46 Dose: 70 mg Ferrous Sulfate (Feosol) 325 mg PO DAILY [facility] Last Admin: 10/26/18 09:06 Dose: 325 mg Gabapentin (Neurontin) 300 mg PO DAILY [facility] Last Admin: 10/26/18 09:06 Dose: 300 mg Home Med (Patient's Own Drops) 1 drop OU HS [facility] Last Admin: 10/25/18 21:45 Dose: 1 drop Hydralazine HCl (Apresoline) 10 mg PO Q6H PRN PRN Reason: Systolic Blood Pressure Last Admin: 10/26/18 09:06 Dose: 10 mg Hydrochlorothiazide (Microzide) 12.5 mg PO DAILY [facility] Last Admin: 10/26/18 09:05 Dose: 12.5 mg Lisinopril (Zestril) 10 mg PO DAILY [facility] Last Admin: 10/26/18 09:05 Dose: 10 mg Tamsulosin HCl (Flomax) 0.4 mg PO DAILY [facility] Last Admin: 10/26/18 09:05 Dose: 0.4 mg Timolol Maleate (Timoptic 0.5% Ophth Soln) 1 drop OU BID [facility] Last Admin: 10/26/18 09:06 Dose: 1 drop Physical Exam - Constitutional Appears: Non-toxic, No Acute Distress - Eye Exam Eye Exam: EOMI, Normal appearance, PERRL Pupil Exam: NORMAL ACCOMODATION - ENT Exam ENT Exam: Mucous Membranes Dry Additional comments: missing several teeth - Respiratory Exam Respiratory Exam: Clear to Auscultation Bilateral - Cardiovascular Exam Cardiovascular Exam: Bradycardia, Irregular Rhythm - GI/Abdominal Exam GI & Abdominal Exam: Normal Bowel Sounds - Rectal Exam Rectal Exam: Bloody Stool Results - Vital Signs Recent Vital Signs: Last Vital Signs Temp 98.0 F 10/26/18 08:29 Pulse 50 L 10/26/18 08:29 Resp 20 10/26/18 08:29 BP 159/68 H 10/26/18 08:29 Pulse Ox 97 10/26/18 08:29 - Labs Result Diagrams: 10/26/18 07:18 10/26/18 07:18 Labs: Laboratory Results - last 24 hr 10/26/18 10/26/18 07:18 07:18 WBC 4.0 L RBC 3.49 L Hgb 11.3 L Hct 32.2 L MCV 92.3 MCH 32.4 H MCHC 35.1 RDW 13.3 Plt Count 170 MPV 8.3 Neut % (Auto) 50.8 Lymph % (Auto) 33.4 Schley % (Auto) 11.3 H Eos % (Auto) 3.7 Baso % (Auto) 0.8 Neut # (Auto) 2.0 Lymph # (Auto) 1.3 Schley # (Auto) 0.5 Eos # (Auto) 0.1 Baso # (Auto) 0.0 Sodium 137 Potassium 3.9 Chloride 104 Carbon Dioxide 28 Anion Gap 9 L BUN 21 H Creatinine 1.1 Est GFR ( Amer) > 60 Est GFR (Non-Af Amer) > 60 Random Glucose 106 Calcium 8.8 Phosphorus 3.5 Magnesium 1.9 Total Bilirubin 0.9 AST 23 ALT 25 Alkaline Phosphatase 73 Total Protein 6.1 L Albumin 3.4 L Globulin 2.7 Albumin/Globulin Ratio 1.2 Assessment & Plan - Assessment and Plan (Free Text) Assessment: 88 yo man with CV history of PAF, SSS and wenckebach. Has expereinced progressive bradycardia and now is symptomatic. 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 Schedule PPM. We discussed risks and benefits and his daughter and grand daughter participated this discussion.
[2018-10-26] MEDS: Patient's Own Drops OU SCH (21:10)
--- NOTE | 2018-10-26 23:39 | CP.PCM.PN ---
Subjective - Date & Time of Evaluation Date of Evaluation: 10/26/18 Time of Evaluation: 19:10 - Subjective Subjective: Patient seen and evaluated Denies chest pain and dyspnea Review of Systems: -Gen: No fever, No chills, No headache, No lethargy, No weakness. -HEENT: No dizziness, No change in vision, No change in hearing, No sore throat, No dysphagia, No nasal congestion, No mucous. -Cardio: No chest pain, No palpitations, +chronic lower extremity edema, No orthopnea. -Resp: No cough, No dyspnea, No hemoptysis, No wheezing, No pain on inspiration. -GI: No abdominal pain, No nausea/vomiting, No diarrhea/constipation, No hematochezia, No hematemesis. -: No dysuria, No urinary freq, No incontinence, No hematuria, No change in urinary stream. -MSK: No back pain, No muscle weakness, No radiating pain. +leg pain -Skin: No itching, No rash, No lesions. -Neuro: No confusion, No numbness, No tingling, No focal weakness, No radicular pain, No syncope. -Psych: No anxiety, No depression, No H/I, No S/I, No hallucinations. Present on Admission - Present on Admission Any Indicators Present on Admission: No Physical Exam - Constitutional Appears: Non-toxic, No Acute Distress - Head Exam Head Exam: ATRAUMATIC, NORMOCEPHALIC - Eye Exam Eye Exam: EOMI, PERRL Additional comments: arcus senilis - ENT Exam ENT Exam: Mucous Membranes Moist - Neck Exam Neck exam: Positive for: Full Rom, Normal Inspection. Negative for: Lymphadenopathy - Respiratory Exam Respiratory Exam: Clear to Auscultation Bilateral, NORMAL BREATHING PATTERN. absent: Accessory Muscle Use, Rales, Rhonchi, Wheezes, Respiratory Distress - Cardiovascular Exam Cardiovascular Exam: Bradycardia, +S1, +S2 - GI/Abdominal Exam GI & Abdominal Exam: Normal Bowel Sounds, Soft. absent: Distended, Firm, Guarding, Rigid, Tenderness - Extremities Exam Extremities exam: Positive for: full ROM, normal capillary refill, pedal pulses present. Negative for: calf tenderness, joint swelling, tenderness Additional comments: chronic venous stasis changes bilaterally, trace pitting edema to RLE. - Neurological Exam Neurological exam: Alert, CN II-XII Intact, Oriented x3 - Psychiatric Exam Psychiatric exam: Normal Affect, Normal Mood - Skin Skin Exam: Dry, Intact, Warm Additional comments: lentigo senilis to back Assessment & Plan - Assessment and Plan (Free Text) Plan: 88 year old male with PMHx of Atrial fibrillation, glaucoma, BPH, chronic leg swelling, and chronic leg pain was sent to the ED by his it security engineer, Dr. Silver when he was found to be bradycardic in the 30's at a routine office visit. Bradycardia and 2:1 Heart Block status, acute Likely PPM on Saturday Consult EP, Dr. Byrd Elevated Blood Pressure Status, acute SBP on admission 170s Hydralazine 10mg PO Q6H PRN SBP>160 Elevated ProBNP status, acute Pro BNP on admission 1550 Patient has no chest pain, cough, shortness of breath, or wheezing No evidence of congestion on respiratory exam f/u CXR Chronic anemia status chronic Hgb A1c on admission 11.2 Likely secondary to chronic disease Monitor Continue ferrous sulfate 325mg PO daily Atrial fibrillation Status chronic Place on Telemetry Lovenox 70mg SC Q12H Previous trial of Eliquis resulted in bloody diarrhea BPH Status, chronic Flomax 0.4mg SC daily Finesteride 5mg PO daily Bilateral glaucoma Status, chronic Home med [facility] non formulary-> Brimonidine 0.2% OU daily Lumigan 0.01% OU daily Bilateral lower extremity edema Status, chronic HCTZ 12.5mg PO daily PPx Therapeutic lovenox GI not indicated HHD/Low carb Patient for PPM tomorrow Objective - Vital Signs/Intake and Output Vital Signs (last 24 hours): Temp Pulse Resp BP Pulse Ox 97.5 F L 54 L 20 108/57 L 98 10/26/18 16:49 10/26/18 16:49 10/26/18 16:49 10/26/18 16:49 10/26/18 16:49 - Medications Medications: Current Medications Aspirin (Aspirin Chewable) 81 mg PO DAILY [facility] Last Admin: 10/26/18 09:05 Dose: 81 mg Brimonidine Tartrate (Alphagan 0.2% Opht) 1 ml OU Q12H [facility] Last Admin: 10/26/18 19:51 Dose: 1 drop Enoxaparin Sodium (Lovenox) 70 mg SC Q12H [facility] Last Admin: 10/26/18 17:29 Dose: 70 mg Ferrous Sulfate (Feosol) 325 mg PO DAILY [facility] Last Admin: 10/26/18 09:06 Dose: 325 mg Gabapentin (Neurontin) 300 mg PO DAILY [facility] Last Admin: 10/26/18 09:06 Dose: 300 mg Home Med (Patient's Own Drops) 1 drop OU HS [facility] Last Admin: 10/26/18 21:10 Dose: 1 drop Hydralazine HCl (Apresoline) 10 mg PO Q6H PRN PRN Reason: Systolic Blood Pressure Last Admin: 10/26/18 09:06 Dose: 10 mg Hydrochlorothiazide (Microzide) 12.5 mg PO DAILY [facility] Last Admin: 10/26/18 09:05 Dose: 12.5 mg Lisinopril (Zestril) 10 mg PO DAILY [facility] Last Admin: 10/26/18 09:05 Dose: 10 mg Tamsulosin HCl (Flomax) 0.4 mg PO DAILY [facility] Last Admin: 10/26/18 09:05 Dose: 0.4 mg Timolol Maleate (Timoptic 0.5% [facility]) 1 drop OU BID [facility] Last Admin: 10/26/18 17:30 Dose: 1 drop - Labs Labs: 10/26/18 07:18 10/26/18 07:18 PT 12.4 SECONDS (9.7-12.2) H 10/25/18 07:02 INR 1.1 10/25/18 07:02 APTT 40 SECONDS (21-34) H 10/25/18 07:02
--- NOTE | 2018-10-27 07:33 | CP.PCM.PN ---
<Wendi Woodruff - Last Filed: 10/27/18 13:51> Subjective - Date & Time of Evaluation Date of Evaluation: 10/27/18 Time of Evaluation: 07:33 - Subjective Subjective: PGY-1 Wendi Woodruff D.O. Medicine progress note for Dr. Weaver's service: Patient was seen and examined this morning. He says that he is ready for his pacemaker surgery, and he is eager to go home. He denies chest pain, SOB, palpitations, lightheadedness, and dizziness. Objective - Vital Signs/Intake and Output Vital Signs (last 24 hours): Temp Pulse Resp BP Pulse Ox 97.8 F 40 L 20 116/57 L 97 10/26/18 23:10 10/27/18 01:00 10/26/18 23:10 10/26/18 23:10 10/26/18 23:10 - Medications Medications: Current Medications Aspirin (Aspirin Chewable) 81 mg PO DAILY [facility] Last Admin: 10/26/18 09:05 Dose: 81 mg Brimonidine Tartrate (Alphagan 0.2% Opht) 1 ml OU Q12H [facility] Last Admin: 10/26/18 19:51 Dose: 1 drop Enoxaparin Sodium (Lovenox) 70 mg SC Q12H [facility] Last Admin: 10/26/18 17:29 Dose: 70 mg Ferrous Sulfate (Feosol) 325 mg PO DAILY [facility] Last Admin: 10/26/18 09:06 Dose: 325 mg Gabapentin (Neurontin) 300 mg PO DAILY [facility] Last Admin: 10/26/18 09:06 Dose: 300 mg Home Med (Patient's Own Drops) 1 drop OU HS [facility] Last Admin: 10/26/18 21:10 Dose: 1 drop Hydralazine HCl (Apresoline) 10 mg PO Q6H PRN PRN Reason: Systolic Blood Pressure Last Admin: 10/26/18 09:06 Dose: 10 mg Hydrochlorothiazide (Microzide) 12.5 mg PO DAILY [facility] Last Admin: 10/26/18 09:05 Dose: 12.5 mg Lisinopril (Zestril) 10 mg PO DAILY [facility] Last Admin: 10/26/18 09:05 Dose: 10 mg Tamsulosin HCl (Flomax) 0.4 mg PO DAILY [facility] Last Admin: 10/26/18 09:05 Dose: 0.4 mg Timolol Maleate (Timoptic 0.5% Ophth Soln) 1 drop OU BID [facility] Last Admin: 10/26/18 17:30 Dose: 1 drop - Labs Labs: 10/26/18 07:18 10/26/18 07:18 PT 12.4 SECONDS (9.7-12.2) H 10/25/18 07:02 INR 1.1 10/25/18 07:02 APTT 40 SECONDS (21-34) H 10/25/18 07:02 - Constitutional Appears: Non-toxic, No Acute Distress - Head Exam Head Exam: ATRAUMATIC, NORMAL INSPECTION - Eye Exam Eye Exam: EOMI, Normal appearance, PERRL Additional comments: b/l arcus senilis - ENT Exam ENT Exam: Mucous Membranes Moist - Respiratory Exam Respiratory Exam: Clear to Ausculation Bilateral, NORMAL BREATHING PATTERN - Cardiovascular Exam Cardiovascular Exam: Bradycardia, REGULAR RHYTHM, +S1, +S2 - GI/Abdominal Exam GI & Abdominal Exam: Soft. absent: Distended, Tenderness - Extremities Exam Extremities Exam: Normal Inspection, Pedal Edema (b/l) - Neurological Exam Neurological Exam: Alert, Awake, CN II-XII Intact, Oriented x3 - Psychiatric Exam Psychiatric exam: Normal Affect, Normal Mood - Skin Skin Exam: Dry, Normal Color, Warm Assessment and Plan - Assessment and Plan (Free Text) Assessment: Patient is an 88 yo male with Afib, glaucoma, and BPH who presented after being sent in by his road crew member, Dr. Silver, for bradycardia in the 30s. Patient also complained of intermittent fatigue and dizziness. EP was consulted and plan on putting in pacemaker today 10/27. Plan: Arrhythmias, chronic, worsening (symptomatic bradycardia)- sick sinus syndrome, Wenckebach, 2:1 AV block - CXR: cardiomegaly - Monitor on telemetry - NPO for pacemaker placement 10/27 - Lovenox 70 mg SC Q12H- discontinued prior to surgery - Cardiology consulted (Nadeem) - EP consulted (Hawa) Hypertension, acute - Vitals Q6H - Avoid beta-delroy and CCB due to bradycardia - Lisinopril 10 mg PO daily - HCTZ 12.5 mg PO daily - Hydralazine 10 mg PO Q6H PRN Glaucoma, bilateral, chronic - Timolol OU BID - Latanoprost OU daily - Brimonidine OU daily Normocytic anemia, chronic, stable - Hgb in 11s - Monitor CBC daily - Ferrous sulfate 325 mg PO daily Benign prostatic hypertrophy, chronic - Flomax 0.4 mg PO daily Lower extremity pain and edema, bilateral, chronic - Gabapentin 300 mg PO daily - HCTZ 12.5 mg PO daily Ppx: VTE: SCDs, chemical anticoag held pre-op GI: not indicated Diet: Heart healthy- NPO pre-op Code status: full code Dispo: Patient pending pacemaker placement today. Will need to f/u with cardiology for anticoagulation post-op for Afib as patient has history of lower GI bleeding on Eliquis. Case was discussed with attending, Dr. Weaver. <Yumi Weaver V - Last Filed: 10/27/18 14:27> Objective - Vital Signs/Intake and Output Vital Signs (last 24 hours): Temp Pulse Resp BP Pulse Ox 98.1 F 43 L 20 153/69 H 95 10/27/18 07:00 10/27/18 08:57 10/27/18 07:00 10/27/18 07:00 10/27/18 07:00 - Medications Medications: Current Medications Aspirin (Aspirin Chewable) 81 mg PO DAILY [facility] Last Admin: 10/26/18 09:05 Dose: 81 mg Brimonidine Tartrate (Alphagan 0.2% Opht) 1 ml OU Q12H [facility] Last Admin: 10/27/18 11:03 Dose: Not Given Ferrous Sulfate (Feosol) 325 mg PO DAILY [facility] Last Admin: 10/27/18 11:02 Dose: Not Given Gabapentin (Neurontin) 300 mg PO DAILY [facility] Last Admin: 10/27/18 11:02 Dose: Not Given Home Med (Patient's Own Drops) 1 drop OU HS [facility] Last Admin: 10/26/18 21:10 Dose: 1 drop Hydralazine HCl (Apresoline) 10 mg PO Q6H PRN PRN Reason: Systolic Blood Pressure Last Admin: 10/26/18 09:06 Dose: 10 mg Hydrochlorothiazide (Microzide) 12.5 mg PO DAILY [facility] Last Admin: 10/27/18 11:02 Dose: Not Given Lisinopril (Zestril) 10 mg PO DAILY [facility] Last Admin: 10/27/18 11:02 Dose: Not Given Tamsulosin HCl (Flomax) 0.4 mg PO DAILY [facility] Last Admin: 10/27/18 11:02 Dose: Not Given Timolol Maleate (Timoptic 0.5% Oph Soln) 1 drop OU BID [facility] Last Admin: 10/27/18 11:02 Dose: Not Given - Labs Labs: 10/27/18 07:44 10/27/18 07:44 PT 11.8 SECONDS (9.7-12.2) 10/27/18 10:32 INR 1.1 10/27/18 10:32 APTT 34 SECONDS (21-34) D 10/27/18 10:32 Attending/Attestation - Attestation I have personally seen and examined this patient.: Yes I have fully participated in the care of the patient.: Yes I have reviewed all pertinent clinical information, including history, physical exam and plan: Yes Notes (Text): Patient seen, examined, and examined and case discussed with day-time resident. Patient seen at bedside. Patient is awake, alert, oriented X3, no acute distress. No family present at bedside. Patient denies any further episodes bloody diarrhea. Patient is scheduled for pacemaker placement with Dr. Byrd at 3pm. NPO after midnight. held Lovenox this AM. Changed to inpatient admission for pacemaker placement needed given symptomatic bradycardia. 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 Silver) on consult help appreciated * Cardiology EPS (Dr. Byrd) on consult help appreciated * Lovenox is held this morning for procedure * Aspirin held this morning for procedure * Continue monitoring on telemetry 2. Hypertension Assessment/Plan * Vitals Q6H * Avoid beta-delroy and CCB due to bradycardia * Lisinopril 10 mg PO daily * HCTZ 12.5 mg PO daily * Hydralazine 10 mg PO Q6H PRN 3. Glaucoma, bilateral, chronic Assessment/Plan * Timolol OU BID * Latanoprost OU daily * Brimonidine OU daily 4. Normocytic anemia, chronic, stable Assessment/Plan * Hgb in 11s * Monitor CBC daily * Ferrous sulfate 325 mg PO daily 5. Benign prostatic hypertrophy, chronic Assessment/Plan * Flomax 0.4 mg PO daily 6. Lower extremity pain and edema, bilateral, chronic Assessment/Plan * Gabapentin 300 mg PO daily * HCTZ 12.5 mg PO daily 7. Ppx: * VTE ppx: SCDs, chemical anticoag held pre-op * GI ppx: not indicated * Diet: Heart healthy- NPO pre-op Code status: full code Dispo: Patient pending pacemaker placement today. Will need to f/u with cardiology for anticoagulation post-op for Afib as patient has prior history of lower GI bleeding on Eliquis in the fall.
[2018-10-27 08:09] LABS: BASO % 1.1 % (0.0-2.0); EOS # 0.2 K/uL (0.0-0.7); EOS % 4.3 % (0.0-4.0); HEMOGLOBIN 11.6 g/dL (12.0-18.0); LYMPH # 1.2 K/uL (1.0-4.3); LYMPH % 30.6 % (20.0-40.0); MEAN CELL VOLUME 92.3 fL (80.0-94.0); MEAN CORPUSCULAR HEMOGLOBIN 32.3 pg (27.0-31.0); MEAN PLATELET VOLUME 8.1 fL (7.2-11.7); MONO # 0.6 K/uL (0.0-0.8); MONO % 15.2 % (0.0-10.0); NEUT # 1.9 K/uL (1.8-7.0); NEUT % 48.8 % (50.0-75.0); RBC 3.59 Mil/uL (4.40-5.90); RED CELL DISTRIBUTION WIDTH 13.6 % (11.5-14.5); WHITE BLOOD COUNT 3.8 K/uL (4.8-10.8)
[2018-10-27 08:13] LABS: ALB/GLOB RATIO 1.3 (1.0-2.1); ALBUMIN 3.5 g/dL (3.5-5.0); ALT/SGPT 27 U/L (21-72); AST/SGOT 25 U/L (17-59); BLOOD UREA NITROGEN 26 mg/dL (9-20); CALCIUM 8.7 mg/dl (8.6-10.4); GFR NON-AFRICAN AMERICAN > 60
[2018-10-27 10:47] LABS: INR 1.1; PROTHROMBIN TIME 11.8 SECONDS (9.7-12.2)
[2018-10-27] MEDS: Brimonidine 0.2% Opth Sol (5ml) OU SCH ×2 (11:03→21:10)
[2018-10-27] MEDS ORDERED: ceFAZolin IV 1 gm in Dextrose 1 GM/50 ML BAG IVPB STA (16:49)
[2018-10-27] MEDS ORDERED: Gentamicin 80 mg in 0.9% NS 80 MG/100 ML BAG IVPB ONE (16:51)
[2018-10-27] MEDS ORDERED: Midazolam 2 MG/2 ML VIAL ONE ×2 (16:59→17:28)
[2018-10-27] MEDS ORDERED: Iodixanol 320 MG/ML 100 ML BOTTLE IV ONE (17:22)
--- NOTE | 2018-10-27 19:56 | PCM.OP ---
Operative Report - Operative Report Date of Surgery/Procedure: 10/27/18 Time of Surgery/Procedure: 17:10 Surgeon: Aristides Garcia MD Athletic Equipment Manager: None Anesthesia/Sedation: Monitord Care versed and fentanyl Pre-Operative Diagnosis: sick sinus syndrome and AV block Post-Operative Diagnosis: sick sinus and AV block Indication for Surgery: symptomatic SSS and AV block Operative Findings: PSA: p wave 2.4, imp 613, capt 0.5 r wave 22.7, imp 918, capt 0.5 Procedure/Operation Description: Pacemaker insertion Estimated Blood Loss: 30 cc Complications: None Discharge & Condition: stable
[2018-10-27] MEDS: Patient's Own Drops OU SCH (21:10)
[2018-10-28 04:49] VITALS: RESP 20
--- NOTE | 2018-10-28 05:36 | CP.PCM.PN ---
Subjective - Date & Time of Evaluation Date of Evaluation: 10/27/18 Time of Evaluation: 16:20 - Subjective Subjective: Patient with Heart Block for PPM today Feels good and denies chest pain or dyspnea Objective - Vital Signs/Intake and Output Vital Signs (last 24 hours): Temp Pulse Resp BP Pulse Ox 98.1 F 66 20 166/65 H 98 10/28/18 04:47 10/28/18 04:47 10/28/18 04:47 10/28/18 04:47 10/28/18 04:47 - Medications Medications: Current Medications Aspirin (Aspirin Chewable) 81 mg PO DAILY [facility] Last Admin: 10/26/18 09:05 Dose: 81 mg Brimonidine Tartrate (Alphagan 0.2% Opht) 1 ml OU Q12H [facility] Last Admin: 10/27/18 21:10 Dose: 1 drop Ferrous Sulfate (Feosol) 325 mg PO DAILY [facility] Last Admin: 10/27/18 11:02 Dose: Not Given Gabapentin (Neurontin) 300 mg PO DAILY [facility] Last Admin: 10/27/18 11:02 Dose: Not Given Home Med (Patient's Own Drops) 1 drop OU HS [facility] Last Admin: 10/27/18 21:10 Dose: 1 drop Hydralazine HCl (Apresoline) 10 mg PO Q6H PRN PRN Reason: Systolic Blood Pressure Last Admin: 10/26/18 09:06 Dose: 10 mg Hydrochlorothiazide (Microzide) 12.5 mg PO DAILY [facility] Last Admin: 10/27/18 11:02 Dose: Not Given Lisinopril (Zestril) 10 mg PO DAILY [facility] Last Admin: 10/27/18 11:02 Dose: Not Given Tamsulosin HCl (Flomax) 0.4 mg PO DAILY [facility] Last Admin: 10/27/18 11:02 Dose: Not Given Timolol Maleate (Timoptic 0.5% Ophth Soln) 1 drop OU BID [facility] Last Admin: 10/27/18 18:13 Dose: Not Given - Labs Labs: 10/27/18 07:44 10/27/18 07:44 PT 11.8 SECONDS (9.7-12.2) 10/27/18 10:32 INR 1.1 10/27/18 10:32 APTT 34 SECONDS (21-34) D 10/27/18 10:32
[2018-10-28 06:45] LABS: BASO % 0.3 % (0.0-2.0); EOS # 0.1 K/uL (0.0-0.7); EOS % 0.7 % (0.0-4.0); HEMOGLOBIN 12.3 g/dL (12.0-18.0); LYMPH % 14.3 % (20.0-40.0); MEAN CELL VOLUME 93.4 fL (80.0-94.0); MEAN CORPUSCULAR HGB CONC 34.3 g/dL (33.0-37.0); MONO # 0.8 K/uL (0.0-0.8); MONO % 11.9 % (0.0-10.0); NEUT # 5.1 K/uL (1.8-7.0); NEUT % 72.8 % (50.0-75.0); RBC 3.84 Mil/uL (4.40-5.90); RED CELL DISTRIBUTION WIDTH 13.4 % (11.5-14.5)
--- NOTE | 2018-10-28 07:18 | CP.PCM.DIS ---
<Wendi Woodruff - Last Filed: 10/28/18 15:57> Provider - Provider Date of Admission: 10/27/18 08:59 Attending physician: Eric Bella MD Primary care physician: May Consults: 10/24/18 17:40 Cardiology Consult Routine Comment: Consulting Provider: Avi Silver Consulting Physician: Avi Silver Reason for Consult: Asymptomatic bradycardia Cardiology Consult Routine Comment: Consulting Provider: Aristides Byrd Consulting Physician: Aristides Byrd Reason for Consult: asymptomatic bradychardia, Pacemaker placement Time Spent in preparation of Discharge (in minutes): 45 Diagnosis - Discharge Diagnosis (1) Symptomatic bradycardia Status: Resolved Priority: High (2) Sick sinus syndrome Status: Chronic Priority: High (3) Wenckebach Status: Chronic Priority: High (4) AV block Status: Chronic Priority: High (5) HTN (hypertension) Status: Chronic Priority: Medium (6) Anemia Status: Chronic Priority: Medium (7) Glaucoma Status: Chronic Priority: Low (8) BPH (benign prostatic hyperplasia) Status: Chronic Priority: Low Hospital Course - Lab Results Lab Results: Most Recent Lab Values WBC 7.0 K/uL (4.8-10.8) D 10/28/18 06:26 RBC 3.84 Mil/uL (4.40-5.90) L 10/28/18 06:26 Hgb 12.3 g/dL (12.0-18.0) 10/28/18 06:26 Hct 35.8 % (35.0-51.0) 10/28/18 06:26 MCV 93.4 fL (80.0-94.0) 10/28/18 06:26 MCH 32.0 pg (27.0-31.0) H 10/28/18 06:26 MCHC 34.3 g/dL (33.0-37.0) 10/28/18 06:26 RDW 13.4 % (11.5-14.5) 10/28/18 06:26 Plt Count 164 K/uL (130-400) 10/28/18 06:26 MPV 8.0 fL (7.2-11.7) 10/28/18 06:26 Neut % (Auto) 72.8 % (50.0-75.0) 10/28/18 06:26 Lymph % (Auto) 14.3 % (20.0-40.0) L 10/28/18 06:26 [place] % (Auto) 11.9 % (0.0-10.0) H 10/28/18 06:26 Eos % (Auto) 0.7 % (0.0-4.0) 10/28/18 06:26 Baso % (Auto) 0.3 % (0.0-2.0) 10/28/18 06: Neut # (Auto) 5.1 K/uL (1.8-7.0) 10/28/18 06: Lymph # (Auto) 1.0 K/uL (1.0-4.3) 10/28/18 06:26 [place] # (Auto) 0.8 K/uL (0.0-0.8) 10/28/18 06: Eos # (Auto) 0.1 K/uL (0.0-0.7) 10/28/18 06: Baso # (Auto) 0.0 K/uL (0.0-0.2) 10/28/18 06:26 PT 11.8 SECONDS (9.7-12.2) 10/27/18 10:32 INR 1.1 10/27/18 10:32 APTT 34 SECONDS (21-34) D 10/27/18 10:32 Sodium 134 mmol/L (132-148) 10/27/18 07:44 Potassium 4.1 mmol/L (3.6-5.2) 10/27/18 07:44 Chloride 102 mmol/L (98-107) 10/27/18 07:44 Carbon Dioxide 29 mmol/L (22-30) 10/27/18 07:44 Anion Gap 7 (10-20) L 10/27/18 07:44 BUN 26 mg/dL (9-20) H 10/27/18 07:44 Creatinine 1.1 mg/dL (0.8-1.5) 10/27/18 07:44 Est GFR ( Amer) > 60 10/27/18 07:44 Est GFR (Non-Af Amer) > 60 10/27/18 07:44 Random Glucose 98 mg/dL (75-110) 10/27/18 07:44 Calcium 8.7 mg/dl (8.6-10.4) 10/27/18 07:44 Phosphorus 3.5 mg/dL (2.5-4.5) 10/27/18 07:44 Magnesium 1.8 mg/dL (1.6-2.3) 10/27/18 07:44 Total Bilirubin 0.8 mg/dL (0.2-1.3) 10/27/18 07:44 AST 25 U/L (17-59) 10/27/18 07:44 ALT 27 U/L (21-72) 10/27/18 07:44 Alkaline Phosphatase 71 U/L (38-126) 10/27/18 07:44 Troponin I < 0.0120 ng/mL (0.00-0.120) 10/24/18 14:40 NT-Pro-B Natriuret Pep 1550 pg/mL (0-900) H 10/24/18 14:40 Total Protein 6.1 g/dL (6.3-8.3) L 10/27/18 07:44 Albumin 3.5 g/dL (3.5-5.0) 10/27/18 07:44 Globulin 2.6 gm/dL (2.2-3.9) 10/27/18 07:44 Albumin/Globulin Ratio 1.3 (1.0-2.1) 10/27/18 07:44 Thyroxine (T4) 7.61 ug/dL (5.5-11.0) 10/25/18 07:02 TSH 3rd Generation 2.50 mIU/L (0.46-4.68) 10/25/18 07:02 Blood Type A POSITIVE 10/24/18 14:40 Antibody Screen Negative 10/24/18 14:40 - Hospital Course Hospital Course: 88 year old male with PMHx of Atrial fibrillation, glaucoma, BPH, chronic leg swelling, and chronic leg pain was sent to the ED by his clin nurse, Dr. Silver when he was found to be bradycardic in the 30's at a routine office visit. Patient has no complaints at this time. Denies chest pain, shortness of breath, lethargy, syncope, near syncope, lightheadedness, dizziness, palpitations, change in vision, abdominal pain, diarrhea, constipation, melena, dysuria, frequency. Patient notes that he was previously on Eliquis for Afib (06/2018), however was taken off of it a few weeks later after experiencing bloody diarrhea . Patient admitted to intermittent fatigue and dizziness. He was diagnosed with symptomatic bradycardia. he has a known history of Afib. cardiology and EP were consulted. EKGs revealed 2:1 AV block and Wenckebach. Patient was monitored on telemetry. He had a pacemaker inserted on 10/27/18 without complications. Patient was restarted on ASA. Patient's BP was monitored, and lisinopril was added to due HTN. Upon discharge, patient was asymptomatic- no chest pain, SOB, palpitations, lightheadedness, dizziness, fatigue. His HR was stable in the 60s. He had a discussion with cardiology, and patient did not wish to start therapeutic anticoagulation at this time due to history of bleed. Patient will take ASA 81 and follow-up with cardiology in 1 month. Discharge Exam - Head Exam Head Exam: ATRAUMATIC, NORMAL INSPECTION - Eye Exam Eye Exam: EOMI, Normal appearance - ENT Exam ENT Exam: Mucous Membranes Moist - Respiratory Exam Respiratory Exam: Clear to PA & Lateral, NORMAL BREATHING PATTERN, UNREMARKABLE - Cardiovascular Exam Cardiovascular Exam: RRR, +S1, +S2. absent: Bradycardia, Tachycardia Additional comments: pacemaker in L chest wall - GI/Abdominal Exam GI & Abdominal Exam: Normal Bowel Sounds, Soft, Unremarkable. absent: Tenderness - Extremities Exam Extremities exam: pedal edema (trace), pedal pulses present - Back Exam Back exam: NORMAL INSPECTION - Neurological Exam Neurological exam: Alert, CN II-XII Intact, Normal Gait, Oriented x3 - Psychiatric Exam Psychiatric exam: Normal Affect, Normal Mood - Skin Skin Exam: Dry, Normal Color, Warm Discharge Plan - Discharge Medications Prescriptions: RX: Aspirin [Ecotrin] 81 mg PO DAILY #30 tabec RX: Lisinopril [Zestril] 10 mg PO DAILY #30 tab - Follow Up Plan Condition: IMPROVED Disposition: HOME/ ROUTINE Patient education suggested?: Yes Instructions: DASH Diet, Pacemaker Insertion (DC), Bradycardia (DC), Low Salt Diet, Lisinopril, Sick Sinus Syndrome (DC), Hypertension (DC) Additional Instructions: Follow-up with your primary care physician, Dr. Olvera, within 3-5 days of discharge. Follow-up with clin nurse, Dr. Silver, within 1 month of discharge. Take all medications as prescribed. Continue taking aspirin 81 mg daily. If symptoms recur, return to the nearest emergency room. Referrals: Avi Silver MD [Staff Provider] - Marjorie Olvera MD [Staff Provider] - <Yumi Weaver V - Last Filed: 10/28/18 23:17> Provider - Provider Date of Admission: 10/27/18 08:59 Attending physician: Eric Bella MD Consults: 10/24/18 17:40 Cardiology Consult Routine Comment: Consulting Provider: Avi Silver Consulting Physician: Avi Silver Reason for Consult: Asymptomatic bradycardia Cardiology Consult Routine Comment: Consulting Provider: Aristides Byrd Consulting Physician: Aristides Byrd Reason for Consult: asymptomatic bradychardia, Pacemaker placement Hospital Course - Lab Results Lab Results: Most Recent Lab Values WBC 7.0 K/uL (4.8-10.8) D 10/28/18 06:26 RBC 3.84 Mil/uL (4.40-5.90) L 10/28/18 06:26 Hgb 12.3 g/dL (12.0-18.0) 10/28/18 06:26 Hct 35.8 % (35.0-51.0) 10/28/18 06:26 MCV 93.4 fL (80.0-94.0) 10/28/18 06:26 MCH 32.0 pg (27.0-31.0) H 10/28/18 06:26 MCHC 34.3 g/dL (33.0-37.0) 10/28/18 06:26 RDW 13.4 % (11.5-14.5) 10/28/18 06:26 Plt Count 164 K/uL (130-400) 10/28/18 06:26 MPV 8.0 fL (7.2-11.7) 10/28/18 06:26 Neut % (Auto) 72.8 % (50.0-75.0) 10/28/18 06:26 Lymph % (Auto) 14.3 % (20.0-40.0) L 10/28/18 06:26 [place] % (Auto) 11.9 % (0.0-10.0) H 10/28/18 06:26 Eos % (Auto) 0.7 % (0.0-4.0) 10/28/18 06:26 Baso % (Auto) 0.3 % (0.0-2.0) 10/28/18 06:26 Neut # (Auto) 5.1 K/uL (1.8-7.0) 10/28/18 06:26 Lymph # (Auto) 1.0 K/uL (1.0-4.3) 10/28/18 06:26 [place] # (Auto) 0.8 K/uL (0.0-0.8) 10/28/18 06:26 Eos # (Auto) 0.1 K/uL (0.0-0.7) 10/28/18 06:26 Baso # (Auto) 0.0 K/uL (0.0-0.2) 10/28/18 06:26 PT 11.8 SECONDS (9.7-12.2) 10/27/18 10:32 INR 1.1 10/27/18 10:32 APTT 34 SECONDS (21-34) D 10/27/18 10:32 Sodium 135 mmol/L (132-148) 10/28/18 06:26 Potassium 4.3 mmol/L (3.6-5.2) 10/28/18 06:26 Chloride 101 mmol/L (98-107) 10/28/18 06:26 Carbon Dioxide 26 mmol/L (22-30) 10/28/18 06:26 Anion Gap 12 (10-20) 10/28/18 06:26 BUN 24 mg/dL (9-20) H 10/28/18 06:26 Creatinine 1.1 mg/dL (0.8-1.5) 10/28/18 06:26 Est GFR ( Amer) > 60 10/28/18 06:26 Est GFR (Non-Af Amer) > 60 10/28/18 06:26 Random Glucose 134 mg/dL (75-110) H D 10/28/18 06:26 Calcium 9.0 mg/dl (8.6-10.4) 10/28/18 06:26 Phosphorus 3.3 mg/dL (2.5-4.5) 10/28/18 06:26 Magnesium 1.8 mg/dL (1.6-2.3) 10/28/18 06:26 Total Bilirubin 0.6 mg/dL (0.2-1.3) 10/28/18 06:26 AST 44 U/L (17-59) 10/28/18 06:26 ALT 27 U/L (21-72) 10/28/18 06:26 Alkaline Phosphatase 77 U/L (38-126) 10/28/18 06:26 Troponin I < 0.0120 ng/mL (0.00-0.120) 10/24/18 14:40 NT-Pro-B Natriuret Pep 1550 pg/mL (0-900) H 10/24/18 14:40 Total Protein 6.1 g/dL (6.3-8.3) L 10/28/18 06:26 Albumin 3.5 g/dL (3.5-5.0) 10/28/18 06:26 Globulin 2.7 gm/dL (2.2-3.9) 10/28/18 06:26 Albumin/Globulin Ratio 1.3 (1.0-2.1) 10/28/18 06:26 Thyroxine (T4) 7.61 ug/dL (5.5-11.0) 10/25/18 07:02 TSH 3rd Generation 2.50 mIU/L (0.46-4.68) 10/25/18 07:02 Blood Type A POSITIVE 10/24/18 14:40 Antibody Screen Negative 10/24/18 14:40 Attending/Attestation - Attestation I have personally seen and examined this patient.: Yes I have fully participated in the care of the patient.: Yes I have reviewed all pertinent clinical information, including history, physical exam and plan: Yes Notes (Text): Patient seen and examined this morning. Patient remains in good spirits. I evaluate site of pacemaker which noted mild bruising no tenderness upon palpation there is no white count no fever and H&H remained stable. Resident has spoken with Dr. Silver recommended high-dose aspirin 325 mg 1 tab p.o. daily anticoagulation held given prior history of bloody diarrhea while on Eliquis. Patient is to follow-up with cardiology upon discharge within in 1 month. Discharge diagnoses: 1.Paroxysmal Atrial Fibrillation Sick Sinus Syndrome Wenkebach 2:1 AV Block Symptomatic Bradycardia Assessment/Plan * Cardiology (Dr. Silver) on consult help appreciated * Cardiology EPS (Dr. Byrd) on consult help appreciated * Lovenox is held this morning for procedure * Aspirin 325 mg once a day follow-up with cardiology upon * Anticoagulation held given the risk of bleeding given prior history of Eliquis while having bloody diarrhea per discretion of clin nurse. 2. Hypertension Assessment/Plan * Vitals Q6H * Avoid beta-delroy and CCB due to bradycardia * Lisinopril 10 mg PO daily * HCTZ 12.5 mg PO daily * Hydralazine 10 mg PO Q6H PRN 3. Glaucoma, bilateral, chronic Assessment/Plan * Timolol OU BID * Latanoprost OU daily * Brimonidine OU daily 4. Normocytic anemia, chronic, stable Assessment/Plan * Hgb in 12 * Monitor CBC daily * Ferrous sulfate 325 mg PO daily 5. Benign prostatic hypertrophy, chronic Assessment/Plan * Flomax 0.4 mg PO daily 6. Lower extremity pain and edema, bilateral, chronic Assessment/Plan * Gabapentin 300 mg PO daily * HCTZ 12.5 mg PO daily 7. Ppx: * VTE ppx: SCDs, chemical anticoag held pre-op 10/28/18 23:16
--- NOTE | 2018-10-28 07:36 | OP ---
PROCEDURE DATE: 10/27/2018 CLINICAL HISTORY: This is a very pleasant 88-year-old gentleman with a history of sick sinus syndrome, intermittent AV block with Wenckebach who has now developed progressive conduction system disease and has heart rates in the 30s and 40s. Due to bradycardia and AV block, he now presents for pacemaker insertion. DESCRIPTION OF PROCEDURE: The patient was brought to the cardiac electrophysiology laboratory and prepped in a standard fashion. Continuous blood pressure, heart rate, electrocardiogram and pulse oximetry monitored throughout the procedure. The area over the left chest was anesthetized with local injection of 2% lidocaine, and a #10 blade was used to make a 3-cm incision. Careful blunt dissection and electrocautery were performed and applied throughout the fascia, and a pocket was made beneath the pectoral muscle. Dissection was performed in the aortic groove. No significant cephalic vein was identified. We then performed a subclavian vein access, and wire was advanced through right atrium. A second wire was also advanced through right atrium. An introducer sheath was advanced over first guidewire, and an active fixation pacing lead was advanced under fluoroscopic guidance to the right ventricular septum where excellent pacing and sensing was obtained. Second introducer sheath was advanced over the second guidewire, and active fixation pacing lead was advanced under fluoroscopic guidance to the right atrial appendage where appropriate pacing and sensing thresholds were obtained. Individual stitches secured to the underlying fascia. The pocket was irrigated liberally with bacitracin-containing saline solution and was observed. Leads were connected to the pacemaker generator which was placed into the pocket and secured to the underlying fascia with . Each subcutaneous tissue was closed with interrupted stitches of 2-0 Vicryl. Superficial subcutaneous tissue was closed with interrupted stitches of 3-0 Vicryl. Subcuticular tissue was closed with a running stitch of 4-0 Monocryl. Dermabond was applied to incision as well as a pressure dressing. He tolerated the procedure well. There were no complications. FINDINGS: 1. Device is a [employer] Accolade, serial # [id number]. 2. The atrial lead is a [employer], 52 cm, serial # [id number]. 3. The ventricular lead is [employer], 59 cm, serial # [id number]. 4. Pacing and sensing analyzer measurement mV, impedance 630 ohm. Capillary pressure is 0.5 volts. Ventricular electrogram 22.7 mV, impedance of 580 ohms, capillary pressure of 0.5 volts. CONCLUSION: Successful dual-chamber pacemaker implantation via subclavian vein access. PLAN: Routine followup. Aristides Garcia MD
[2018-10-28 07:41] LABS: ALB/GLOB RATIO 1.3 (1.0-2.1); ALBUMIN 3.5 g/dL (3.5-5.0); ALT/SGPT 27 U/L (21-72); AST/SGOT 44 U/L (17-59); BLOOD UREA NITROGEN 24 mg/dL (9-20); GFR NON-AFRICAN AMERICAN > 60
[2018-10-28 08:15] VITALS: BP 169/67; PULSE 61; TEMP 97.4; O2SAT 99
--- NOTE | 2018-10-28 09:23 | RAD ---
Date of service: 10/27/2018 HISTORY: S/P Permanent Pacemaker Implantation COMPARISON: 10/24/2018. FINDINGS: LUNGS: The lungs are well inflated and clear. There is mild pulmonary venous congestion. PLEURA: No pleural effusions or pneumothorax. CARDIOVASCULAR: Moderate cardiomegaly. Interval placement of a dual lead permanent pacing device with leads terminating in the right atrium and right ventricle. There are aortic atherosclerotic calcifications present. OSSEOUS STRUCTURES: Within normal limits for the patient's age. VISUALIZED UPPER ABDOMEN: Normal. OTHER FINDINGS: None. IMPRESSION: Interval placement of left-sided dual lead permanent pacing device with leads terminating in the right atrium and right ventricle. No acute findings.
[2018-10-28] MEDS: Brimonidine 0.2% Opth Sol (5ml) OU SCH (11:49)
[2018-10-28] MEDS ORDERED: LUMIGAN 0.01% EYE DROPS OU SCH (22:00)
--- NOTE | 2018-10-29 03:33 | CARD ---
APPROVED REPORT Date of service: 10/24/2018 EKG Measurement Heart [id number] <Conclusion> Atrial fibrillation with slow ventricular response Left axis deviation Voltage criteria for left ventricular hypertrophy Junctional ST depression, probably normal Abnormal ECG
== END 2018-10-28 16:04 | disposition home or self-care (01) | DRG 244 ==
LOC: C.ER 13:13 → C.6T 15:13 → OBSVTOIN 10-27 08:59
PROVIDERS: ADMIT Family Medicine; ATTEND Family Medicine
PROC: 0JH606Z Insertion of Pacemaker, Dual Chamber into Chest Subcutaneous Tissue and Fascia, Open Approach (ICD-10-PCS; principal; 2018-10-27)
PROC: 02H63JZ Insertion of Pacemaker Lead into Right Atrium, Percutaneous Approach (ICD-10-PCS; 2018-10-27)
PROC: 02HK3JZ Insertion of Pacemaker Lead into Right Ventricle, Percutaneous Approach (ICD-10-PCS; 2018-10-27)
DX: I49.5 Sick sinus syndrome (principal); I44.1 Atrioventricular block, second degree; I48.0 Paroxysmal atrial fibrillation; I11.9 Hypertensive heart disease without heart failure; I51.7 Cardiomegaly; D63.8 Anemia in other chronic diseases classified elsewhere; H40.9 Unspecified glaucoma; N40.0 Benign prostatic hyperplasia without lower urinary tract symptoms; Z79.82 Long term (current) use of aspirin; Z79.899 Other long term (current) drug therapy